=== PATIENT | male | born 1965 ===

== ENCOUNTER 2022-03-20 11:33 | Inpatient (IN) | payer OTHER ==
[~2022-03-20] VITALS: Ht 177.8 cm; Wt 101.8 kg
[2022-03-20] MEDS ORDERED: PROPOFOL 1000 MG/ISO-OSM 100 ML IV PRN (11:45)
[2022-03-20] MEDS ORDERED: AMIODARONE HCL 360 MG in DEXTROSE 5%-WATER 242.8 ML IV ONE (11:45)
[2022-03-20] MEDS ORDERED: AMIODARONE HCL 150 MG in DEXTROSE 5%-WATER 97 ML IV ONE (11:45)
[2022-03-20] MEDS ORDERED: HEPARIN SODIUM,PORCINE 5,000 UNITS/ML VIAL ONE (11:52)
[2022-03-20] MEDS ORDERED: ASPIRIN 300 MG RECTAL SUPPOSITORY PR ONE ×2 (11:52→12:00)
[2022-03-20 11:55] LABS: BASOPHILS % (AUTO) 0.5 % (0.0-2.0); EOSINOPHILS % (AUTO) 0.7 % (1.0-6.0); HEMATOCRIT 46.8 % (41-53); HEMOGLOBIN 14.7 g/dL (13.5-17.5); LYMPHOCYTES # (AUTO) 7.2 K/uL (1.0-4.8); LYMPHOCYTES % (AUTO) 47.2 % (22.0-44.0); MEAN CORPUSCULAR HGB CONC 31.5 G/dL (31.0-37.0); MEAN CORPUSCULAR VOLUME 95 fL (80-100); MONOCYTES # (AUTO) 0.6 K/uL (0.1-1.0); MONOCYTES % (AUTO) 3.7 % (2.0-9.0); NEUTROPHILS # (AUTO) 7.3 K/uL (1.8-7.7); NEUTROPHILS % (AUTO) 47.9 % (40.0-70.0); PLATELET COUNT (AUTO) 216 K/uL (150-450); RED BLOOD CELL COUNT(AUTO) 4.91 MIL/uL (4.50-5.90); RED CELL DISTRIBUTION WIDTH 14.9 % (11.5-14.5)
[2022-03-20] MEDS ORDERED: HEPARIN SODIUM,PORCINE 5,000 UNITS/ML VIAL IVP PRN ×2 (12:00)
[2022-03-20] MEDS ORDERED: HEPARIN SODIUM 25000 UNITS/D5W 250 ML IV PRN (12:00)
[2022-03-20] MEDS ORDERED: HEPARIN SODIUM,PORCINE 5,000 UNITS/ML VIAL IVP ONE (12:00)
[2022-03-20 12:05] LABS: INR 1.1 (0.9-1.1)
[2022-03-20] MEDS ORDERED: NOREPINEPHRINE 8 MG/D5%-WATER 250 ML IV ONE (12:14)
[2022-03-20] MEDS ORDERED: FentaNYL CITRATE PF 100 MCG/2 ML VIAL ONE (12:17)
[2022-03-20] MEDS ORDERED: MIDAZOLAM HCL 2 MG/2 ML VIAL ONE (12:18)
[2022-03-20 12:20] VITALS: BP 124/71
[2022-03-20 12:27] LABS: ALBUMIN 3.5 g/dL (3.4-5.0); BILIRUBIN,TOTAL 1.1 mg/dL (0.1-1.0); CALCIUM, TOTAL 8.5 mg/dL (8.8-10.5); CREATININE 1.64 mg/dL (0.60-1.30); MAGNESIUM 2.3 mg/dL (1.80-2.40)
[2022-03-20 12:30] LABS: POTASSIUM 2.7 mmol/L (3.5-5.1)
[2022-03-20] MEDS ORDERED: PHENYLEPHRINE HCL IN 0.9% NACL 400 MCG/10 ML SYRINGE IVP ONE ×2 (12:35→12:45)
[2022-03-20] MEDS ORDERED: LIDOCAINE 1% 30 ML/SOD BICARB 8.4% 4 ML SQ ONE (12:45)
[2022-03-20] MEDS ORDERED: MIDAZOLAM HCL 2 MG/2 ML VIAL IVP ONE (12:45)
[2022-03-20] MEDS ORDERED: HEPARIN SODIUM,PORCINE 1,000 UNITS/ML 10 ML VIAL IARTER ONE (12:45)
[2022-03-20] MEDS ORDERED: NITROGLYCERIN/D5W 50 MG/250 ML IV BOTTLE IARTER ONE (12:45)
[2022-03-20] MEDS ORDERED: IOHEXOL 300 MG/ML 100 ML VIAL IARTER ONE (12:45)
[2022-03-20] MEDS ORDERED: HEPARIN SODIUM 1000 UNITS/NS 1,000 ML IARTER ONE (12:45)
[2022-03-20] MEDS ORDERED: VERAPAMIL HCL 2.5 MG/ML 2 ML VIAL IARTER ONE (12:45)
[2022-03-20] MEDS: NOREPINEPHRINE 8 MG/D5%-WATER 250 ML IV PRN ×2 (12:59→21:42)
[2022-03-20] MEDS ORDERED: POTASSIUM CHLORIDE 20 MEQ ER TABLET PO PRN (13:00)
[2022-03-20] MEDS ORDERED: ONDANSETRON HCL 4 MG/2 ML VIAL IVP PRN ×2 (13:00→16:30)
[2022-03-20 13:07] VITALS: BP 91/50
[2022-03-20 13:30] VITALS: BP 109/72
[2022-03-20 13:54] LABS: AMPHET/METH SCREEN,URINE POSITIVE (NEGATIVE); BARBITURATE SCREEN, URINE NEGATIVE (NEGATIVE); BENZODIAZEPINES SCREEN,URINE NEGATIVE (NEGATIVE); CANNABINOID SCREEN,URINE NEGATIVE (NEGATIVE); COCAINE SCREEN,URINE NEGATIVE (NEGATIVE); METHADONE SCREEN, URINE NEGATIVE (NEGATIVE); OPIATE SCREEN,URINE NEGATIVE (NEGATIVE); PHENCYCLIDINE SCREEN,URINE NEGATIVE (NEGATIVE)
[2022-03-20] MEDS: PROPOFOL 1000 MG/ISO-OSM 100 ML IV PRN ×3 (15:30→21:43)
[2022-03-20] MEDS ORDERED: MIDAZOLAM HCL 100 MG in SODIUM CHLORIDE 0.9% 180 ML IV PRN (15:30)
[2022-03-20] MEDS: FentaNYL CIT 1000MCG/0.9% NACL 100 ML IV PRN ×2 (15:32→18:37)
[2022-03-20 16:00] VITALS: BP 150/95
[2022-03-20] MEDS ORDERED: MEPERIDINE-PF 25 MG/ML VIAL IM PRN (16:00)
[2022-03-20] MEDS ORDERED: ALBUTEROL SULFATE 2.5 MG/0.5 ML NEB SOLUTION NEB PRN (16:30)
[2022-03-20] MEDS ORDERED: MAGNESIUM HYDROXIDE SUSPENSION 30 ML UDCUP PO PRN (16:30)
[2022-03-20] MEDS ORDERED: HYDROCODONE/ACETAMINOPHEN 5-325 MG TABLET PO PRN (16:30)
[2022-03-20] MEDS ORDERED: MORPHINE SULFATE 2 MG/ML SYRINGE IVP PRN (16:30)
[2022-03-20] MEDS ORDERED: BISACODYL 10 MG RECTAL RECTAL SUPPOSITORY PR PRN (16:30)
[2022-03-20] MEDS ORDERED: ZOLPIDEM TARTRATE 5 MG TABLET PO PRN (16:30)
[2022-03-20] MEDS ORDERED: IPRATROPIUM BROMIDE 0.5 MG/2.5 ML NEB SOLUTION NEB PRN (16:30)
[2022-03-20] MEDS ORDERED: 0.9% SODIUM CHLORIDE 10 ML SYRINGE IVP ONE (16:54)
[2022-03-20 16:57] LABS: ABG BASE EXCESS -6.1 mmol/L (-2.0-3.0); ABG CARBOXYHEMOGLOBIN 0.5 % (0.0-1.5); ABG HCO3 19.2 mmol/L (22.0-26.0); ABG METHEMOGLOBIN 0.3 % (0.0-1.5); ABG OXYGEN CONTENT 22.8 mL/dL (15.0-23.0); ABG OXYGEN SATURATION 89.7 % (95.0-98.0); ABG PCO2 51 mmHg (35-45); ABG PH 7.241 (7.35-7.450); ABG TOTAL HEMOGLOBIN 18.3 G/dL (12.0-18.0); PO2, ARTERIAL BG 66.4 mmHg (84.0-92.0); SOURCE, BLOOD GAS ARTERIAL; TEMPERATURE, FAHRENHEIT, BG 100.7 FAHREN (96.0-98.6)
[2022-03-20 16:59] LABS: ABG A-A DIFF O2 592.7 mmHg (10-20.0); O2 DEVICE,BLOOD GAS VENTILATOR (ROOM AIR); PEEP,BG 5 cm H2O; SITE, BLOOD GAS LFT RADIAL; VT, ABG 550 ml
[2022-03-20] MEDS ORDERED: SODIUM BICARBONATE [ADULT] 8.4% 50 MEQ/50 ML SYRINGE IVP ONE (17:15)
[2022-03-20] MEDS ORDERED: POTASSIUM CHLORIDE 10% 40 MEQ/30 ML LIQUID UDCUP GT PRN (17:30)
[2022-03-20] MEDS: ACETAMINOPHEN 325 MG TABLET PO PRN (17:35)
[2022-03-20] MEDS ORDERED: SODIUM CHLORIDE 0.9% 250 ML IV ONE (17:38)
[2022-03-20] MEDS ORDERED: AMIODARONE HCL 540 MG in DEXTROSE 5%-WATER 239.2 ML IV ONE ×2 (17:45→18:00)
[2022-03-20] MEDS: PIPERACILLIN/TAZO 3.375 GM/D5W 50 ML IV SCH ×2 (19:42→23:52)
[2022-03-20 20:00] VITALS: BP 102/69
[2022-03-20 20:03] LABS: COVID AG,FIA SOURCE NASAL SWAB
[2022-03-20 20:07] LABS: APPEARANCE,URINE HAZY (CLEAR); BILIRUBIN,URINE NEGATIVE (NEGATIVE); GLUCOSE, URINE (UA) TRACE mg/dL (NEGATIVE); KETONES,URINE NEGATIVE (NEGATIVE); LEUKOCYTE ESTERASE ,URINE NEGATIVE (NEGATIVE); NITRATE,URINE NEGATIVE (NEGATIVE); OCCULT BLOOD,URINE MODERATE (NEGATIVE); PROTEIN,URINE 100-200,SEE CONFIRM mg/dL (NEGATIVE); UROBILINOGEN,URINE <=1.0 mg/dL (<=1.0)
[2022-03-20 20:11] LABS: SPECIFIC GRAVITIY, URINE > 1.050 (1.003-1.030)
[2022-03-20 20:20] LABS: BACTERIA,URINE Few /HPF (None Seen); SQUAMOUS EPITHELIAL CELL,UR Few /LPF (None Seen)
[2022-03-20 20:21] LABS: SULFOSALICYLIC ACID,URINE 3+ (Negative)
[2022-03-20 20:25] LABS: INFLUENZA TYPE A NEGATIVE FOR TYPE A (NEGATIVE); INFLUENZA TYPE B NEGATIVE FOR TYPE B (NEGATIVE)
[2022-03-20] MEDS: DOCUSATE SODIUM 100 MG CAPSULE PO SCH (21:41)
[2022-03-20] MEDS ORDERED: VASOPRESSIN 40 UNITS in DEXTROSE 5%-WATER 98 ML IV PRN (22:00)
[2022-03-20] MEDS: PHENYLEPHRINE 200 MG/D5%-WATER 250 ML IV PRN (22:03)
[2022-03-20 22:11] LABS: ALBUMIN 3.4 g/dL (3.4-5.0); BILIRUBIN,TOTAL 2.2 mg/dL (0.1-1.0); CREATININE 1.94 mg/dL (0.60-1.30); MAGNESIUM 2.2 mg/dL (1.80-2.40); PHOSPHORUS 3.3 mg/dL (2.5-4.9); POTASSIUM 3.6 mmol/L (3.5-5.1); TOTAL PROTEIN, SERUM 6.1 g/dL (6.4-8.2)
[2022-03-20 22:28] LABS: ABG BASE EXCESS -7.6 mmol/L (-2.0-3.0); ABG CARBOXYHEMOGLOBIN 0.4 % (0.0-1.5); ABG HCO3 17.9 mmol/L (22.0-26.0); ABG OXYGEN CONTENT 23.7 mL/dL (15.0-23.0); ABG OXYGEN SATURATION 93.8 % (95.0-98.0); ABG OXYHEMOGLOBIN 93.4 % (94.0-100.0); ABG PCO2 50 mmHg (35-45); ABG PH 7.224 (7.35-7.450); ABG TOTAL HEMOGLOBIN 18.1 G/dL (12.0-18.0); PO2, ARTERIAL BG 67.4 mmHg (84.0-92.0); SOURCE, BLOOD GAS ARTERIAL; TEMPERATURE, FAHRENHEIT, BG 95.5 FAHREN (96.0-98.6)
[2022-03-20 22:29] LABS: PEEP,BG 8 cm H2O; SITE, BLOOD GAS RT RADIAL; VT, ABG 550 ml
[2022-03-20] MEDS: HEPARIN SODIUM,PORCINE 5,000 UNITS/ML VIAL SQ SCH (23:52)
[2022-03-21] VITALS: BP 155/108
[2022-03-21] MEDS: FentaNYL CIT 1000MCG/0.9% NACL 100 ML IV PRN ×4 (00:44→16:04)
[2022-03-21] MEDS: PROPOFOL 1000 MG/ISO-OSM 100 ML IV PRN ×3 (00:55→13:47)
[2022-03-21 04:00] VITALS: BP 92/38
[2022-03-21] MEDS: PIPERACILLIN/TAZO 3.375 GM/D5W 50 ML IV SCH ×3 (05:46→17:08)
[2022-03-21] MEDS: NOREPINEPHRINE 8 MG/D5%-WATER 250 ML IV PRN ×2 (05:46→09:06)
[2022-03-21 06:19] LABS: HEMATOCRIT 54.7 % (41-53); HEMOGLOBIN 17.8 g/dL (13.5-17.5); MEAN CORPUSCULAR HEMOGLOBIN 30.5 pg (26.0-34.0); MEAN CORPUSCULAR HGB CONC 32.6 G/dL (31.0-37.0); MEAN CORPUSCULAR VOLUME 93 fL (80-100); PLATELET COUNT (AUTO) 233 K/uL (150-450); RED BLOOD CELL COUNT(AUTO) 5.86 MIL/uL (4.50-5.90); RED CELL DISTRIBUTION WIDTH 14.9 % (11.5-14.5)
[2022-03-21 06:35] LABS: ALBUMIN 3.3 g/dL (3.4-5.0); BILIRUBIN,TOTAL 3.2 mg/dL (0.1-1.0); CALCIUM, TOTAL 8.8 mg/dL (8.8-10.5); CREATININE 1.89 mg/dL (0.60-1.30); MAGNESIUM 2.2 mg/dL (1.80-2.40); TOTAL PROTEIN, SERUM 6.3 g/dL (6.4-8.2)
[2022-03-21 06:46] LABS: PHOSPHORUS 0.9 mg/dL (2.5-4.9); POTASSIUM 2.6 mmol/L (3.5-5.1)
[2022-03-21] MEDS: POTASSIUM CHL 10 MEQ/WATER 50 ML IV PRN ×2 (06:52→08:48)
[2022-03-21 08:00] VITALS: BP 138/62
[2022-03-21 08:21] LABS: ABG CARBOXYHEMOGLOBIN 0.2 % (0.0-1.5); ABG HCO3 18.8 mmol/L (22.0-26.0); ABG OXYGEN CONTENT 25.3 mL/dL (15.0-23.0); ABG OXYGEN SATURATION 98.6 % (95.0-98.0); ABG OXYHEMOGLOBIN 98.4 % (94.0-100.0); ABG PCO2 25 mmHg (35-45); ABG PH 7.415 (7.35-7.450); ABG TOTAL HEMOGLOBIN 18.2 G/dL (12.0-18.0); PO2, ARTERIAL BG 101.7 mmHg (84.0-92.0); SOURCE, BLOOD GAS ARTERIAL; TEMPERATURE, FAHRENHEIT, BG 91.7 FAHREN (96.0-98.6)
[2022-03-21] MEDS: HEPARIN SODIUM,PORCINE 5,000 UNITS/ML VIAL SQ SCH ×2 (08:30→15:15)
[2022-03-21] MEDS: PANTOPRAZOLE SODIUM 40 MG/VIAL IVP SCH (08:30)
[2022-03-21] MEDS: DOCUSATE SODIUM 100 MG CAPSULE PO SCH ×2 (08:31→20:56)
[2022-03-21 08:35] LABS: BAND NEUTROPHILS % (MANUAL) 64 % (0-5); LYMPHOCYTES % (MANUAL) 7 % (22-44); MONOCYTES % (MANUAL) 7 % (2-9); SEGMENTED NEUTROPHILS % 22 % (40-70)
[2022-03-21] MEDS ORDERED: DEXTROSE 5% IV ONE (09:00)
[2022-03-21] MEDS ORDERED: WATER IV ONE (09:00)
[2022-03-21] MEDS ORDERED: POTASSIUM PHOS M BASIC D BASIC IV ONE (09:00)
[2022-03-21] MEDS ORDERED: SODIUM CHLORIDE 0.9% 500 ML IV ONE (09:24)
[2022-03-21] MEDS: ACETAMINOPHEN 325 MG TABLET PO PRN ×2 (09:58→22:04)
[2022-03-21] MEDS: POTASSIUM CHL 10 MEQ/WATER 50 ML IV SCH ×4 (09:59→13:47)
[2022-03-21 10:49] LABS: LACTIC ACID 2.9 mmol/L (0.4-2.0)
[2022-03-21 10:50] LABS: ABG BASE EXCESS -9.5 mmol/L (-2.0-3.0); ABG CARBOXYHEMOGLOBIN 0.3 % (0.0-1.5); ABG HCO3 18.2 mmol/L (22.0-26.0); ABG METHEMOGLOBIN 0.1 % (0.0-1.5); ABG OXYGEN CONTENT 25.5 mL/dL (15.0-23.0); ABG OXYGEN SATURATION 99.1 % (95.0-98.0); ABG OXYHEMOGLOBIN 98.7 % (94.0-100.0); ABG PCO2 29 mmHg (35-45); ABG PH 7.358 (7.35-7.450); ABG TOTAL HEMOGLOBIN 18.2 G/dL (12.0-18.0); PO2, ARTERIAL BG 155.9 mmHg (84.0-92.0); SOURCE, BLOOD GAS ARTERIAL; TEMPERATURE, FAHRENHEIT, BG 94.3 FAHREN (96.0-98.6)
[2022-03-21 10:57] LABS: ALBUMIN 2.8 g/dL (3.4-5.0); BILIRUBIN,TOTAL 2.9 mg/dL (0.1-1.0); CALCIUM, TOTAL 8.3 mg/dL (8.8-10.5); CREATININE 1.98 mg/dL (0.60-1.30); PHOSPHORUS 2.4 mg/dL (2.5-4.9); POTASSIUM 3.4 mmol/L (3.5-5.1); TOTAL PROTEIN, SERUM 5.6 g/dL (6.4-8.2)
[2022-03-21 11:10] LABS: O2 DEVICE,BLOOD GAS VENTILATOR (ROOM AIR); PEEP,BG 8 cm H2O; SITE, BLOOD GAS LFT RADIAL; VT, ABG 550 ml
[2022-03-21 11:11] LABS: ABG A-A DIFF O2 243.1 mmHg (10-20.0); O2 DEVICE,BLOOD GAS VENTILATOR (ROOM AIR); SITE, BLOOD GAS ARTERIAL LINE
[2022-03-21 11:12] LABS: PEEP,BG 8 cm H2O; VT, ABG 550 ml
[2022-03-21] MEDS: AMIODARONE HCL 750 MG in DEXTROSE 5%-WATER 485 ML IV SCH (11:37)
[2022-03-21] MEDS ORDERED: SODIUM CHLORIDE 0.9% 250 ML IV ONE (11:44)
[2022-03-21] MEDS ORDERED: AMIODARONE HCL 750 MG in DEXTROSE 5%-WATER 485 ML IV SCH (11:45)
[2022-03-21 12:00] VITALS: BP 90/49
[2022-03-21 15:30] LABS: ALBUMIN 2.6 g/dL (3.4-5.0); BILIRUBIN,TOTAL 2.8 mg/dL (0.1-1.0); CALCIUM, TOTAL 8.1 mg/dL (8.8-10.5); CREATININE 1.88 mg/dL (0.60-1.30); MAGNESIUM 1.9 mg/dL (1.80-2.40); PHOSPHORUS 2.9 mg/dL (2.5-4.9); POTASSIUM 3.8 mmol/L (3.5-5.1); TOTAL PROTEIN, SERUM 5.4 g/dL (6.4-8.2)
[2022-03-21 16:00] VITALS: BP 119/61
[2022-03-21] MEDS ORDERED: ETOMIDATE 2 MG/ML 10 ML VIAL IV ONE (17:40)
[2022-03-21] MEDS ORDERED: SUCCINYLCHOLINE CHLORIDE 20 MG/ML 10 ML VIAL IV ONE (17:40)
[2022-03-21 20:00] VITALS: BP 101/51
[2022-03-22] VITALS: BP 143/92
[2022-03-22] MEDS ORDERED: SODIUM CHLORIDE 0.9% 250 ML IV ONE (00:21)
[2022-03-22] MEDS: HEPARIN SODIUM,PORCINE 5,000 UNITS/ML VIAL SQ SCH ×4 (00:22→23:51)
[2022-03-22] MEDS: PIPERACILLIN/TAZO 3.375 GM/D5W 50 ML IV SCH ×3 (00:22→11:55)
[2022-03-22] MEDS: PHENYLEPHRINE 200 MG/D5%-WATER 250 ML IV PRN (01:21)
[2022-03-22 04:00] VITALS: BP 118/63
[2022-03-22] MEDS: FentaNYL CIT 1000MCG/0.9% NACL 100 ML IV PRN ×2 (05:34→15:44)
[2022-03-22 05:58] LABS: HEMATOCRIT 49.9 % (41-53); HEMOGLOBIN 16.2 g/dL (13.5-17.5); MEAN CORPUSCULAR HEMOGLOBIN 30.1 pg (26.0-34.0); MEAN CORPUSCULAR HGB CONC 32.4 G/dL (31.0-37.0); MEAN CORPUSCULAR VOLUME 93 fL (80-100); PLATELET COUNT (AUTO) 220 K/uL (150-450); RED BLOOD CELL COUNT(AUTO) 5.37 MIL/uL (4.50-5.90); RED CELL DISTRIBUTION WIDTH 15.3 % (11.5-14.5)
[2022-03-22 06:07] LABS: HEMOGLOBIN A1C 5.4 % (3.8-5.6)
[2022-03-22 06:13] LABS: ALBUMIN 2.6 g/dL (3.4-5.0); BILIRUBIN,TOTAL 2.2 mg/dL (0.1-1.0); CALCIUM, TOTAL 7.8 mg/dL (8.8-10.5); CHOL/HDL RATIO 1.9 (4.2-7.3); CREATININE 3.17 mg/dL (0.60-1.30); POTASSIUM 4.8 mmol/L (3.5-5.1); TOTAL PROTEIN, SERUM 5.8 g/dL (6.4-8.2)
[2022-03-22 06:41] LABS: LACTIC ACID 2.3 mmol/L (0.4-2.0)
[2022-03-22 08:00] VITALS: BP 109/60
[2022-03-22] MEDS: DOCUSATE SODIUM 100 MG CAPSULE PO SCH ×2 (08:18→20:24)
[2022-03-22] MEDS: THIAMINE 100 MG/ML 2 ML VIAL IVP SCH (08:18)
[2022-03-22] MEDS: PANTOPRAZOLE SODIUM 40 MG/VIAL IVP SCH (08:18)
[2022-03-22] MEDS: MULTIVITAMINS, THERAPEUTIC 15 ML UDCUP NG SCH (08:19)
[2022-03-22] MEDS: ACETAMINOPHEN 325 MG TABLET PO PRN (08:19)
[2022-03-22 08:36] LABS: BAND NEUTROPHILS % (MANUAL) 11 % (0-5); LYMPHOCYTES % (MANUAL) 16 % (22-44); MONOCYTES % (MANUAL) 3 % (2-9); SEGMENTED NEUTROPHILS % 70 % (40-70)
[2022-03-22] MEDS ORDERED: FUROSEMIDE 40 MG/4 ML VIAL IVP SCH (09:45)
[2022-03-22] MEDS: NOREPINEPHRINE 8 MG/D5%-WATER 250 ML IV PRN (10:29)
[2022-03-22] MEDS: AMIODARONE HCL 750 MG in DEXTROSE 5%-WATER 485 ML IV SCH (11:55)
[2022-03-22 12:00] VITALS: BP 92/55
[2022-03-22] MEDS: DOXYCYCLINE HYCLATE 100 MG in DEXTROSE 5%-WATER 100 ML IV SCH (13:04)
[2022-03-22] MEDS ORDERED: VANCOMYCIN 1GM/WATER(PEG/NADA) 200 ML IV ONE (15:00)
[2022-03-22 16:00] VITALS: BP 93/57
[2022-03-22] MEDS: METOCLOPRAMIDE HCL 5 MG/ML 2 ML VIAL IVP SCH ×2 (16:44→23:51)
[2022-03-22] MEDS: PIPERACILLIN SODIUM/TAZOBACTAM 2.25 GM in DEXTROSE 5%-WATER 50 ML IV SCH ×2 (16:46→23:50)
[2022-03-22 17:04] LABS: ABG BASE EXCESS -5.8 mmol/L (-2.0-3.0); ABG CARBOXYHEMOGLOBIN 0.1 % (0.0-1.5); ABG HCO3 20.4 mmol/L (22.0-26.0); ABG METHEMOGLOBIN 0.3 % (0.0-1.5); ABG OXYGEN CONTENT 21.6 mL/dL (15.0-23.0); ABG OXYGEN SATURATION 97.5 % (95.0-98.0); ABG OXYHEMOGLOBIN 97.1 % (94.0-100.0); ABG PCO2 38 mmHg (35-45); ABG PH 7.339 (7.35-7.450); ABG TOTAL HEMOGLOBIN 15.8 G/dL (12.0-18.0); PO2, ARTERIAL BG 104.2 mmHg (84.0-92.0); SOURCE, BLOOD GAS ARTERIAL; TEMPERATURE, FAHRENHEIT, BG 100.1 FAHREN (96.0-98.6)
[2022-03-22 17:05] LABS: ABG A-A DIFF O2 136.6 mmHg (10-20.0); O2 DEVICE,BLOOD GAS VENTILATOR (ROOM AIR); PEEP,BG 5 cm H2O; SITE, BLOOD GAS ARTERIAL LINE; VT, ABG 550 ml
[2022-03-22 17:06] LABS: SPONTANEOUS VT, BG 543 ml
[2022-03-22 17:16] LABS: CALCIUM, TOTAL 7.7 mg/dL (8.8-10.5); CREATININE 3.13 mg/dL (0.60-1.30); POTASSIUM 4.1 mmol/L (3.5-5.1)
[2022-03-22 20:00] VITALS: BP 94/52
[2022-03-22] MEDS: FUROSEMIDE 20 MG/2 ML VIAL IVP SCH (20:23)
[2022-03-23] VITALS (7 sets, daily range): BP systolic 91–143; BP diastolic 50–87
[2022-03-23] MEDS: DOXYCYCLINE HYCLATE 100 MG in DEXTROSE 5%-WATER 100 ML IV SCH ×2 (01:21→13:01)
[2022-03-23] MEDS: FentaNYL CIT 1000MCG/0.9% NACL 100 ML IV PRN ×2 (02:24→15:39)
[2022-03-23] MEDS: PHENYLEPHRINE 200 MG/D5%-WATER 250 ML IV PRN (02:28)
[2022-03-23 05:30] LABS: BASOPHILS % (AUTO) 0.4 % (0.0-2.0); EOSINOPHILS % (AUTO) 0.1 % (1.0-6.0); HEMATOCRIT 42.1 % (41-53); HEMOGLOBIN 13.9 g/dL (13.5-17.5); LYMPHOCYTES # (AUTO) 1.1 K/uL (1.0-4.8); LYMPHOCYTES % (AUTO) 7.7 % (22.0-44.0); MEAN CORPUSCULAR HEMOGLOBIN 30.5 pg (26.0-34.0); MEAN CORPUSCULAR HGB CONC 32.9 G/dL (31.0-37.0); MEAN CORPUSCULAR VOLUME 93 fL (80-100); MONOCYTES # (AUTO) 0.6 K/uL (0.1-1.0); MONOCYTES % (AUTO) 4.2 % (2.0-9.0); NEUTROPHILS # (AUTO) 12.7 K/uL (1.8-7.7); PLATELET COUNT (AUTO) 198 K/uL (150-450); RED BLOOD CELL COUNT(AUTO) 4.55 MIL/uL (4.50-5.90); RED CELL DISTRIBUTION WIDTH 15.6 % (11.5-14.5)
[2022-03-23] MEDS: PIPERACILLIN SODIUM/TAZOBACTAM 2.25 GM in DEXTROSE 5%-WATER 50 ML IV SCH ×4 (05:35→23:49)
[2022-03-23 05:43] LABS: ALBUMIN 2.4 g/dL (3.4-5.0); BILIRUBIN,TOTAL 1.6 mg/dL (0.1-1.0); CALCIUM, TOTAL 8.1 mg/dL (8.8-10.5); CREATININE 2.71 mg/dL (0.60-1.30); POTASSIUM 3.6 mmol/L (3.5-5.1); TOTAL PROTEIN, SERUM 5.6 g/dL (6.4-8.2)
[2022-03-23 05:44] LABS: NEUTROPHILS % (AUTO) 87.6 % (40.0-70.0)
[2022-03-23 05:53] LABS: C-REACTIVE PROTEIN QUANT 35.69 mg/dL (0.00-0.30)
[2022-03-23] MEDS ORDERED: VANCOMYCIN 1GM/WATER(PEG/NADA) 200 ML IV SCH (08:00)
[2022-03-23] MEDS: DEXMEDETOMIDINE HCL 400 MCG in SODIUM CHLORIDE 0.9% 96 ML IV PRN ×2 (08:12→15:39)
[2022-03-23] MEDS: METOCLOPRAMIDE HCL 5 MG/ML 2 ML VIAL IVP SCH ×3 (08:13→23:49)
[2022-03-23] MEDS: DOCUSATE SODIUM 100 MG CAPSULE PO SCH ×2 (08:13→21:44)
[2022-03-23] MEDS: MULTIVITAMINS, THERAPEUTIC 15 ML UDCUP NG SCH (08:13)
[2022-03-23] MEDS: HEPARIN SODIUM,PORCINE 5,000 UNITS/ML VIAL SQ SCH ×3 (08:14→23:49)
[2022-03-23] MEDS: PANTOPRAZOLE SODIUM 40 MG/VIAL IVP SCH (08:14)
[2022-03-23] MEDS: THIAMINE 100 MG/ML 2 ML VIAL IVP SCH (08:14)
[2022-03-23] MEDS: FUROSEMIDE 20 MG/2 ML VIAL IVP SCH ×2 (08:14→21:44)
[2022-03-23 11:16] LABS: ABG BASE EXCESS -4.2 mmol/L (-2.0-3.0); ABG CARBOXYHEMOGLOBIN 0.9 % (0.0-1.5); ABG METHEMOGLOBIN 0.1 % (0.0-1.5); ABG OXYGEN CONTENT 18.4 mL/dL (15.0-23.0); ABG OXYGEN SATURATION 90.5 % (95.0-98.0); ABG OXYHEMOGLOBIN 89.6 % (94.0-100.0); ABG PCO2 44 mmHg (35-45); ABG PH 7.315 (7.35-7.450); ABG TOTAL HEMOGLOBIN 14.6 G/dL (12.0-18.0); PO2, ARTERIAL BG 66.2 mmHg (84.0-92.0); SOURCE, BLOOD GAS ARTERIAL; TEMPERATURE, FAHRENHEIT, BG 100.2 FAHREN (96.0-98.6)
[2022-03-23 11:19] LABS: ABG A-A DIFF O2 167.3 mmHg (10-20.0); CPAP, BG 5 cm H2O; O2 DEVICE,BLOOD GAS VENTILATOR (ROOM AIR); PRESSURE SUPPORT, BG 8 cm H2O; SITE, BLOOD GAS ARTERIAL LINE; SPONTANEOUS VT, BG 500 ml; VENT MODE, BG CPAP (ROOM AIR)
[2022-03-23] MEDS: AMIODARONE HCL 750 MG in DEXTROSE 5%-WATER 485 ML IV SCH (12:03)
[2022-03-23] MEDS: ACETAMINOPHEN 325 MG TABLET PO PRN ×2 (12:08→22:33)
[2022-03-23] MEDS: PROPOFOL 1000 MG/ISO-OSM 100 ML IV PRN ×2 (12:19→22:34)
[2022-03-23] MEDS ORDERED: SODIUM CHLORIDE 0.9% 1,000 ML ONE (13:52)
[2022-03-23] MEDS: AMIODARONE HCL 200 MG TABLET PEG SCH (21:44)
[2022-03-24] VITALS (9 sets, daily range): BP systolic 105–142; BP diastolic 52–79
[2022-03-24] MEDS: FentaNYL CIT 1000MCG/0.9% NACL 100 ML IV PRN ×3 (02:26→23:57)
[2022-03-24] MEDS: PROPOFOL 1000 MG/ISO-OSM 100 ML IV PRN ×4 (02:32→22:32)
[2022-03-24] MEDS ORDERED: SODIUM CHLORIDE 0.9% 500 ML IV ONE (02:32)
[2022-03-24 05:33] LABS: BASOPHILS % (AUTO) 0.7 % (0.0-2.0); EOSINOPHILS % (AUTO) 0.2 % (1.0-6.0); HEMATOCRIT 42.4 % (41-53); HEMOGLOBIN 13.9 g/dL (13.5-17.5); LYMPHOCYTES # (AUTO) 1.9 K/uL (1.0-4.8); LYMPHOCYTES % (AUTO) 15.7 % (22.0-44.0); MEAN CORPUSCULAR HEMOGLOBIN 30.4 pg (26.0-34.0); MEAN CORPUSCULAR HGB CONC 32.7 G/dL (31.0-37.0); MEAN CORPUSCULAR VOLUME 93 fL (80-100); MONOCYTES # (AUTO) 0.7 K/uL (0.1-1.0); MONOCYTES % (AUTO) 5.5 % (2.0-9.0); NEUTROPHILS # (AUTO) 9.2 K/uL (1.8-7.7); NEUTROPHILS % (AUTO) 77.9 % (40.0-70.0); PLATELET COUNT (AUTO) 204 K/uL (150-450); RED BLOOD CELL COUNT(AUTO) 4.57 MIL/uL (4.50-5.90); RED CELL DISTRIBUTION WIDTH 15.2 % (11.5-14.5)
[2022-03-24 05:41] LABS: CALCIUM, TOTAL 8.5 mg/dL (8.8-10.5); CREATININE 1.77 mg/dL (0.60-1.30); POTASSIUM 3.7 mmol/L (3.5-5.1)
[2022-03-24] MEDS: PIPERACILLIN SODIUM/TAZOBACTAM 2.25 GM in DEXTROSE 5%-WATER 50 ML IV SCH (05:52)
[2022-03-24] MEDS: HEPARIN SODIUM,PORCINE 5,000 UNITS/ML VIAL SQ SCH (07:44)
[2022-03-24] MEDS: METOCLOPRAMIDE HCL 5 MG/ML 2 ML VIAL IVP SCH ×3 (07:44→23:56)
[2022-03-24] MEDS: AMIODARONE HCL 200 MG TABLET PEG SCH ×2 (08:07→21:17)
[2022-03-24] MEDS: MULTIVITAMINS, THERAPEUTIC 15 ML UDCUP NG SCH (08:07)
[2022-03-24] MEDS: FUROSEMIDE 20 MG/2 ML VIAL IVP SCH ×2 (08:07→21:17)
[2022-03-24] MEDS: THIAMINE 100 MG/ML 2 ML VIAL IVP SCH (08:07)
[2022-03-24] MEDS: DOCUSATE SODIUM 100 MG/10 ML LIQUID UDCUP NG SCH ×2 (09:04→21:17)
[2022-03-24 09:21] LABS: MAGNESIUM 2.3 mg/dL (1.80-2.40); PHOSPHORUS 2.8 mg/dL (2.5-4.9)
[2022-03-24 11:29] LABS: ABG CARBOXYHEMOGLOBIN 0.8 % (0.0-1.5); ABG HCO3 21.4 mmol/L (22.0-26.0); ABG METHEMOGLOBIN 0.3 % (0.0-1.5); ABG OXYGEN CONTENT 20.4 mL/dL (15.0-23.0); ABG OXYGEN SATURATION 97.3 % (95.0-98.0); ABG OXYHEMOGLOBIN 96.2 % (94.0-100.0); ABG PCO2 42 mmHg (35-45); ABG PH 7.338 (7.35-7.450); SOURCE, BLOOD GAS ARTERIAL; TEMPERATURE, FAHRENHEIT, BG 98.7 FAHREN (96.0-98.6)
[2022-03-24 11:31] LABS: SITE, BLOOD GAS ARTERIAL LINE
[2022-03-24 11:32] LABS: ABG A-A DIFF O2 137.2 mmHg (10-20.0); O2 DEVICE,BLOOD GAS VENTILATOR (ROOM AIR); PEEP,BG 5 cm H2O; PRESSURE SUPPORT, BG 5 cm H2O; SPONTANEOUS VT, BG 462 ml; VENT MODE, BG CPAP (ROOM AIR)
[2022-03-24] MEDS ORDERED: PIPERACILLIN/TAZO 3.375 GM/D5W 50 ML IV SCH (12:00)
[2022-03-24 15:07] LABS: S PNEUMO SOURCE Urine; STREP PNEUMONIAE AG URINE Negative (Negative)
[2022-03-24] MEDS: PHENYLEPHRINE 200 MG/D5%-WATER 250 ML IV PRN (16:33)
[2022-03-24] MEDS: AMPICILLIN SODIUM/SULBACTAM NA 3 GM in SODIUM CHLORIDE 0.9% 100 ML IV SCH ×2 (16:54→23:56)
[2022-03-24 17:06] LABS: LEGIONELLA PNEUMO AG URINE Negative (Negative)
[2022-03-25] VITALS: BP 122/60
[2022-03-25] MEDS: PROPOFOL 1000 MG/ISO-OSM 100 ML IV PRN ×5 (00:56→18:30)
[2022-03-25 04:00] VITALS: BP_SYST 111; BP_DIAS 45; BP_DIAS 48
[2022-03-25] MEDS: FentaNYL CIT 1000MCG/0.9% NACL 100 ML IV PRN ×3 (04:33→21:37)
[2022-03-25 05:32] LABS: CALCIUM, TOTAL 8.7 mg/dL (8.8-10.5); CREATININE 1.36 mg/dL (0.60-1.30); POTASSIUM 3.4 mmol/L (3.5-5.1)
[2022-03-25] MEDS: AMPICILLIN SODIUM/SULBACTAM NA 3 GM in SODIUM CHLORIDE 0.9% 100 ML IV SCH ×4 (06:43→23:37)
[2022-03-25 08:00] VITALS: BP 126/58
[2022-03-25] MEDS: FUROSEMIDE 20 MG/2 ML VIAL IVP SCH ×2 (08:01→21:36)
[2022-03-25] MEDS: THIAMINE 100 MG/ML 2 ML VIAL IVP SCH (08:02)
[2022-03-25] MEDS: DOCUSATE SODIUM 100 MG/10 ML LIQUID UDCUP NG SCH ×2 (08:02→21:36)
[2022-03-25] MEDS: AMIODARONE HCL 200 MG TABLET PEG SCH ×2 (08:02→21:36)
[2022-03-25] MEDS: MULTIVITAMINS, THERAPEUTIC 15 ML UDCUP NG SCH (08:02)
[2022-03-25] MEDS: METOCLOPRAMIDE HCL 5 MG/ML 2 ML VIAL IVP SCH ×3 (08:03→23:37)
[2022-03-25 12:00] VITALS: BP 107/52
[2022-03-25] MEDS: HEPARIN SODIUM,PORCINE 5,000 UNITS/ML VIAL SQ SCH ×2 (15:36→23:37)
[2022-03-25 16:00] VITALS: BP 108/51
[2022-03-25 20:00] VITALS: BP_SYST 110; BP_SYST 167; BP_DIAS 53; BP_DIAS 84
[2022-03-26] VITALS: BP 102/50
[2022-03-26] MEDS: PROPOFOL 1000 MG/ISO-OSM 100 ML IV PRN ×5 (00:37→21:33)
[2022-03-26 04:00] VITALS: BP 115/56
[2022-03-26] MEDS: AMPICILLIN SODIUM/SULBACTAM NA 3 GM in SODIUM CHLORIDE 0.9% 100 ML IV SCH ×4 (05:08→23:41)
[2022-03-26 06:27] LABS: BASOPHILS % (AUTO) 0.6 % (0.0-2.0); EOSINOPHILS % (AUTO) 2.2 % (1.0-6.0); HEMATOCRIT 38.9 % (41-53); HEMOGLOBIN 12.8 g/dL (13.5-17.5); LYMPHOCYTES # (AUTO) 1.4 K/uL (1.0-4.8); LYMPHOCYTES % (AUTO) 22.4 % (22.0-44.0); MEAN CORPUSCULAR HEMOGLOBIN 30.4 pg (26.0-34.0); MEAN CORPUSCULAR HGB CONC 32.9 G/dL (31.0-37.0); MEAN CORPUSCULAR VOLUME 92 fL (80-100); MONOCYTES # (AUTO) 0.7 K/uL (0.1-1.0); MONOCYTES % (AUTO) 10.9 % (2.0-9.0); NEUTROPHILS # (AUTO) 3.9 K/uL (1.8-7.7); NEUTROPHILS % (AUTO) 63.9 % (40.0-70.0); PLATELET COUNT (AUTO) 235 K/uL (150-450); RED BLOOD CELL COUNT(AUTO) 4.22 MIL/uL (4.50-5.90); RED CELL DISTRIBUTION WIDTH 15.5 % (11.5-14.5)
[2022-03-26 06:42] LABS: ALBUMIN 2.2 g/dL (3.4-5.0); BILIRUBIN,TOTAL 0.8 mg/dL (0.1-1.0); C-REACTIVE PROTEIN QUANT 7.31 mg/dL (0.00-0.30); CREATININE 1.33 mg/dL (0.60-1.30); POTASSIUM 3.1 mmol/L (3.5-5.1); TOTAL PROTEIN, SERUM 5.7 g/dL (6.4-8.2)
[2022-03-26 08:00] VITALS: BP 116/53
[2022-03-26] MEDS: DOCUSATE SODIUM 100 MG/10 ML LIQUID UDCUP NG SCH ×2 (08:38→21:23)
[2022-03-26] MEDS: MULTIVITAMINS, THERAPEUTIC 15 ML UDCUP NG SCH (08:38)
[2022-03-26] MEDS: FUROSEMIDE 20 MG/2 ML VIAL IVP SCH (08:39)
[2022-03-26] MEDS: AMIODARONE HCL 200 MG TABLET PEG SCH ×2 (08:39→21:23)
[2022-03-26] MEDS: THIAMINE 100 MG/ML 2 ML VIAL IVP SCH (08:40)
[2022-03-26] MEDS: HEPARIN SODIUM,PORCINE 5,000 UNITS/ML VIAL SQ SCH ×3 (08:41→23:41)
[2022-03-26] MEDS: METOCLOPRAMIDE HCL 5 MG/ML 2 ML VIAL IVP SCH ×3 (08:41→23:42)
[2022-03-26] MEDS: POTASSIUM CHL 10 MEQ/WATER 50 ML IV SCH ×2 (08:46→09:44)
[2022-03-26] MEDS ORDERED: POTASSIUM CHL 10 MEQ/WATER 50 ML IV PRN (09:15)
[2022-03-26] MEDS ORDERED: POTASSIUM CHLORIDE 10% 40 MEQ/30 ML LIQUID UDCUP NG PRN (09:15)
[2022-03-26 10:40] LABS: ABG BASE EXCESS -0.1 mmol/L (-2.0-3.0); ABG CARBOXYHEMOGLOBIN 0.5 % (0.0-1.5); ABG HCO3 24.2 mmol/L (22.0-26.0); ABG METHEMOGLOBIN 0.3 % (0.0-1.5); ABG OXYGEN CONTENT 18.2 mL/dL (15.0-23.0); ABG OXYGEN SATURATION 94.1 % (95.0-98.0); ABG OXYHEMOGLOBIN 93.3 % (94.0-100.0); ABG PCO2 44 mmHg (35-45); ABG PH 7.372 (7.35-7.450); ABG TOTAL HEMOGLOBIN 13.9 G/dL (12.0-18.0); PO2, ARTERIAL BG 73.7 mmHg (84.0-92.0); SITE, BLOOD GAS ARTERIAL LINE; SOURCE, BLOOD GAS ARTERIAL; TEMPERATURE, FAHRENHEIT, BG 99.7 FAHREN (96.0-98.6)
[2022-03-26 10:41] LABS: CPAP, BG 5 cm H2O; O2 DEVICE,BLOOD GAS VENTILATOR (ROOM AIR); PRESSURE SUPPORT, BG 8 cm H2O; SPONTANEOUS VT, BG 339 ml; VENT MODE, BG CPAP (ROOM AIR)
[2022-03-26] MEDS: ACETAMINOPHEN 325 MG TABLET PO PRN ×2 (11:23→18:35)
[2022-03-26 12:00] VITALS: BP 111/54
[2022-03-26 16:00] VITALS: BP 105/53
[2022-03-26 20:00] VITALS: BP 120/60
[2022-03-26] MEDS: FentaNYL CIT 1000MCG/0.9% NACL 100 ML IV PRN (22:28)
[2022-03-26] MEDS ORDERED: SODIUM CHLORIDE 0.9% 500 ML IV ONE (23:46)
[2022-03-27] VITALS: BP 118/57
[2022-03-27] MEDS: PROPOFOL 1000 MG/ISO-OSM 100 ML IV PRN ×3 (00:59→07:52)
[2022-03-27] MEDS: FentaNYL CIT 1000MCG/0.9% NACL 100 ML IV PRN ×2 (03:21→08:10)
[2022-03-27 04:00] VITALS: BP 114/52
[2022-03-27] MEDS: AMPICILLIN SODIUM/SULBACTAM NA 3 GM in SODIUM CHLORIDE 0.9% 100 ML IV SCH (05:19)
[2022-03-27 05:30] LABS: BASOPHILS % (AUTO) 0.5 % (0.0-2.0); EOSINOPHILS % (AUTO) 2.1 % (1.0-6.0); HEMATOCRIT 38.2 % (41-53); HEMOGLOBIN 12.5 g/dL (13.5-17.5); LYMPHOCYTES # (AUTO) 1.4 K/uL (1.0-4.8); LYMPHOCYTES % (AUTO) 25.9 % (22.0-44.0); MEAN CORPUSCULAR HEMOGLOBIN 30.3 pg (26.0-34.0); MEAN CORPUSCULAR HGB CONC 32.8 G/dL (31.0-37.0); MEAN CORPUSCULAR VOLUME 93 fL (80-100); MONOCYTES # (AUTO) 0.5 K/uL (0.1-1.0); MONOCYTES % (AUTO) 9.6 % (2.0-9.0); NEUTROPHILS # (AUTO) 3.4 K/uL (1.8-7.7); NEUTROPHILS % (AUTO) 61.9 % (40.0-70.0); PLATELET COUNT (AUTO) 250 K/uL (150-450); RED BLOOD CELL COUNT(AUTO) 4.13 MIL/uL (4.50-5.90); RED CELL DISTRIBUTION WIDTH 15.7 % (11.5-14.5)
[2022-03-27 05:44] LABS: ALANINE AMINOTRANSFERASE 105 U/L (12-78); ALBUMIN 2.5 g/dL (3.4-5.0); ALKALINE PHOSPHATASE 143 U/L (46-116); ANION GAP 7 mmol/L (8-16); ASPARTATE AMINOTRANSFERASE 114 U/L (15-37); BILIRUBIN,TOTAL 0.8 mg/dL (0.1-1.0); CALCIUM, TOTAL 8.8 mg/dL (8.8-10.5); CARBON DIOXIDE 27 mmol/L (22-29); CHLORIDE 111 mmol/L (98-107); CREATININE 1.19 mg/dL (0.60-1.30); GLUCOSE,RANDOM 89 mg/dL (70-110); POTASSIUM 3.4 mmol/L (3.5-5.1); SODIUM SERUM 145 mmol/L (136-145); TOTAL PROTEIN, SERUM 6.1 g/dL (6.4-8.2); UREA NITROGEN, BLOOD 28 mg/dL (7-18)
[2022-03-27 05:49] LABS: GLOMERULAR FILTR. RATE CALC > 60 mL/min (>60)
[2022-03-27 07:52] VITALS: BP 109/49
[2022-03-27] MEDS ORDERED: FUROSEMIDE 20 MG/2 ML VIAL IVP SCH (09:00)
== END 2022-03-27 08:20 | disposition short-term general hospital (02) | DRG 870 ==
LOC: EMS 11:33 → EDBD 11:33 → ICU 12:37
PROVIDERS: ADMIT Hospitalist; ATTEND Hospitalist
PROC: 0BH17EZ Insertion of Endotracheal Airway into Trachea, Via Natural or Artificial Opening (ICD-10-PCS; principal; 2022-03-20)
PROC: 5A1955Z Respiratory Ventilation, Greater than 96 Consecutive Hours (ICD-10-PCS; 2022-03-20)
PROC: 4A023N7 Measurement of Cardiac Sampling and Pressure, Left Heart, Percutaneous Approach (ICD-10-PCS; 2022-03-20)
PROC: B2111ZZ Fluoroscopy of Multiple Coronary Arteries using Low Osmolar Contrast (ICD-10-PCS; 2022-03-20)
PROC: B2151ZZ Fluoroscopy of Left Heart using Low Osmolar Contrast (ICD-10-PCS; 2022-03-20)
DX: A41.9 Sepsis, unspecified organism (principal); J96.00 Acute respiratory failure, unspecified whether with hypoxia or hypercapnia; I21.A1 Myocardial infarction type 2; I46.2 Cardiac arrest due to underlying cardiac condition; I49.01 Ventricular fibrillation; I50.23 Acute on chronic systolic (congestive) heart failure; N17.0 Acute kidney failure with tubular necrosis; J15.211 Pneumonia due to Methicillin susceptible Staphylococcus aureus; R57.0 Cardiogenic shock; R65.21 Severe sepsis with septic shock; E87.2 Acidosis; I42.8 Other cardiomyopathies; E83.39 Other disorders of phosphorus metabolism; E87.6 Hypokalemia; I25.5 Ischemic cardiomyopathy; Z20.822 Contact with and (suspected) exposure to COVID-19; F15.10 Other stimulant abuse, uncomplicated; N18.9 Chronic kidney disease, unspecified; R74.01 Elevation of levels of liver transaminase levels; Z86.61 Personal history of infections of the central nervous system; Z79.899 Other long term (current) drug therapy
CPT/HCPCS: 31500; 36600; 71045; 71250; 72192; 74150; 76770; 80048; 80053; 80061; 81001; 81002; 82550; 82805; 83036; 83605; 83735; 83880; 84100; 84132; 84484; 85025; 85610; 85730; 86140; 87040; 87070; 87081; 87086; 87186; 87205; 87449; 87804; 87899; 93005; 93306; 94002; 94003; 94667; 94668; 99291; C9113; G0238; G0378; J0282; J0295; J0330; J1644; J1940; J2250; J2370; J2543; J2704; J2765; J3010; J3411; J3480; J3490; J7030; J7040; J7050; J7060; Q9967; 36415-L1; 36415-TC